=== PATIENT | female | born 1995 | race Caucasian/White ===

== ENCOUNTER 2018-03-17 18:21 | Outpatient (CLI) | payer OTHER ==
[2018-03-17 21:07] LABS: ADD UMIC YES; UR ASCORBIC ACID NEGATIVE (NEGATIVE); UR BACTERIA MODERATE /HPF (NONE SEEN); UR BILIRUBIN (Dip) NEGATIVE (NEGATIVE); UR BLOOD (Dip) 1+ mg/dL (NEGATIVE); UR CLARITY SLIGHTLY CLOUDY (CLEAR); UR COLOR YELLOW (YELLOW); UR GLUCOSE (Dip) NEGATIVE (NEGATIVE); UR KETONES (Dip) NEGATIVE (NEGATIVE); UR LEUKOCYTE ESTERASE (Dip) 3+ Leu/ul (NEGATIVE); UR MUCUS MODERATE /HPF (NONE SEEN); UR NITRITE (Dip) POSITIVE (NEGATIVE); UR RBC 4 /HPF (0-5); UR SPECIFIC GRAVITY (Dip) 1.009 (1.003-1.030); UR SQUAMOUS EPITHELIAL CELL FEW /HPF (FEW); UR TOTAL PROTEIN (Dip) NEGATIVE (NEGATIVE); UR UROBILINOGEN (Dip) NEGATIVE (NEGATIVE); UR WBC 20 /HPF (0-5)
== END 2018-03-17 21:10 | disposition home or self-care (01) ==
LOC: OBT 18:21 → L-D 18:22 → OBT 21:10
DX: O62.9 Abnormality of forces of labor, unspecified (principal); Z3A.37 37 weeks gestation of pregnancy
CPT/HCPCS: 81001

== ENCOUNTER 2018-03-31 10:00 | Inpatient (IN) | payer OTHER ==
[2018-03-31] MEDS ORDERED: MISOPROSTOL 200 MCG TAB PR ×2 (11:00→17:00)
[2018-03-31] MEDS ORDERED: OXYTOCIN 30 UNITS/LR 500 ML IV ×2 (11:00→17:00)
[2018-03-31] MEDS ORDERED: METHYLERGONOVINE 0.2 MG INJ IM ×2 (11:00→17:00)
[2018-03-31] MEDS ORDERED: CARBOPROST 250 MCG INJ IM ×2 (11:00→17:00)
[2018-03-31] MEDS: CEFAZOLIN 2 GM/50 ML (PMX) 50 ML IVPB (11:00)
[2018-03-31] MEDS: LACTATED RINGER'S 1,000 ML IV* ×2 (11:05→20:50)
[2018-03-31] MEDS ORDERED: NALOXONE (0.4 MG/ML) INJ IV (11:30)
[2018-03-31] MEDS ORDERED: HYDROmorphONE 0.5 MG/0.5 ML SYG IV ×2 (11:30)
[2018-03-31] MEDS ORDERED: MIDAZOLAM 1 MG/ML 2 ML INJ IV (11:30)
[2018-03-31] MEDS ORDERED: EPHEDrine SULFATE 50 MG/5 ML SYG IV (11:30)
[2018-03-31] MEDS ORDERED: DIPHENHYDRAMINE 50 MG INJ IV (11:30)
[2018-03-31] MEDS: ONDANSETRON 4 MG INJ IV ×3 (11:30→21:56)
[2018-03-31] MEDS ORDERED: NALBUPHINE HCL (10 MG/1 ML) INJ IV (11:30)
[2018-03-31] MEDS ORDERED: ZOLPIDEM 5 MG TAB PO (11:30)
[2018-03-31] MEDS ORDERED: MEPERIDINE 25 MG INJ IV (11:30)
[2018-03-31 11:33] LABS: ADD MAN DIFF? NO
[2018-03-31 11:41] LABS: BASOPHILS % 0.3 % (0.0-2.0); EOSINOPHILS # 0.1 10^3/ul (0.0-0.5); EOSINOPHILS % 0.5 % (0.0-7.0); HEMATOCRIT 33.9 % (37.0-47.0); HEMOGLOBIN 11.2 g/dl (12.0-16.0); LYMPHOCYTES # 2.8 10^3/ul (0.8-2.9); LYMPHOCYTES % 26.5 % (15.0-51.0); MEAN CORPUSCULAR HEMOGLOBIN 29.7 pg (29.0-33.0); MEAN CORPUSCULAR VOLUME 89.9 fl (82.0-101.0); MEAN PLATELET VOLUME 12.5 fl (7.4-10.4); MONOCYTE # 0.5 10^3/ul (0.3-0.9); MONOCYTES % 5.2 % (0.0-11.0); NEUTROPHILS % 66.8 % (39.0-77.0); PLATELET COUNT 143 10^3/UL (140-415); RED BLOOD COUNT 3.77 10^6/ul (4.20-5.40); RED CELL DISTRIBUTION WIDTH 14.1 % (11.5-14.5)
[2018-03-31 11:41] LABS: WHITE BLOOD COUNT 10.5 10^3/ul (4.8-10.8)
[2018-03-31 11:55] LABS: INR 0.89; PROTIME 12.1 Sec (11.9-14.9); PT RATIO 0.9
[2018-03-31] MEDS: LACTATED RINGER'S 1,000 ML IV ×2 (11:55→16:52)
[2018-03-31 11:56] LABS: PARTIAL THROMBOPLASTIN TIME 28.1 Sec (25.0-35.0)
[2018-03-31] MEDS: OXYTOCIN 30 UNITS/LR 500 ML IV ×3 (14:35→20:49)
[2018-03-31 15:50] LABS: RAPID PLASMA REAGIN NONREACTIVE (NR)
[2018-03-31 16:23] LABS: HEPATITIS B SURFACE ANTIGEN NEGATIVE (NEGATIVE)
[2018-03-31] MEDS ORDERED: OXYCODONE/ACETAMINOPHEN (5/325) TAB PO ×2 (17:00)
[2018-03-31] MEDS: LANOLIN 7 GM TUBE TOP (18:16)
[2018-03-31] MEDS ORDERED: DEXAMETHASONE 4 MG/ML 1 ML INJ (20:10)
[2018-03-31] MEDS ORDERED: OXYTOCIN 10 UNIT INJ (20:10)
[2018-03-31] MEDS ORDERED: DIPHENHYDRAMINE 50 MG INJ (20:10)
[2018-03-31] MEDS ORDERED: morphine SULFATE/PF (10 MG/10 ML) INJ (20:10)
[2018-03-31] MEDS ORDERED: BUPIVACAINE 0.75%/DEXT (SPINAL) 2 ML INJ (20:10)
[2018-03-31] MEDS: SENNA/DOCUSATE NA (8.6MG/50MG) TAB PO (21:00)
[2018-03-31] MEDS: IBUPROFEN 800 MG TAB PO (22:00)
[2018-03-31] MEDS: DIPHENHYDRAMINE 50 MG INJ IV (23:57)
[2018-04-01] MEDS: LACTATED RINGER'S 1,000 ML IV ×2 (00:52→08:34)
[2018-04-01] MEDS: LACTATED RINGER'S 1,000 ML IV* (03:00)
[2018-04-01] MEDS: IBUPROFEN 800 MG TAB PO ×3 (06:00→21:27)
[2018-04-01 06:54] LABS: ADD MAN DIFF? NO
[2018-04-01 07:09] LABS: BASOPHILS % 0.2 % (0.0-2.0); EOSINOPHILS % 0.1 % (0.0-7.0); HEMATOCRIT 29.5 % (37.0-47.0); HEMOGLOBIN 9.8 g/dl (12.0-16.0); LYMPHOCYTES # 2.7 10^3/ul (0.8-2.9); MEAN CORPUSCULAR HEMOGLOBIN 29.9 pg (29.0-33.0); MEAN CORPUSCULAR HGB CONC 33.2 g/dl (32.0-37.0); MEAN CORPUSCULAR VOLUME 89.9 fl (82.0-101.0); MEAN PLATELET VOLUME 12.6 fl (7.4-10.4); MONOCYTE # 0.8 10^3/ul (0.3-0.9); MONOCYTES % 5.8 % (0.0-11.0); NEUTROPHIL # 10.7 10^3/ul (1.6-7.5); NEUTROPHILS % 74.3 % (39.0-77.0); PLATELET COUNT 130 10^3/UL (140-415); RED BLOOD COUNT 3.28 10^6/ul (4.20-5.40); RED CELL DISTRIBUTION WIDTH 13.9 % (11.5-14.5)
[2018-04-01 07:09] LABS: WHITE BLOOD COUNT 14.4 10^3/ul (4.8-10.8)
[2018-04-01] MEDS: DIPHENHYDRAMINE 50 MG INJ IV (08:29)
[2018-04-01] MEDS: SENNA/DOCUSATE NA (8.6MG/50MG) TAB PO ×2 (08:29→21:27)
[2018-04-01] MEDS ORDERED: MIDAZOLAM 1 MG/ML 2 ML INJ (20:10)
[2018-04-01] MEDS: FERROUS SULFATE (EC) 325 MG TAB PO (21:27)
[2018-04-02] MEDS: IBUPROFEN 800 MG TAB PO ×3 (06:14→21:40)
[2018-04-02] MEDS: SENNA/DOCUSATE NA (8.6MG/50MG) TAB PO ×2 (09:32→21:40)
[2018-04-02] MEDS: FERROUS SULFATE (EC) 325 MG TAB PO ×3 (09:32→21:40)
[2018-04-02] MEDS: LANOLIN 7 GM TUBE TOP (11:11)
[2018-04-02] MEDS: MAGNESIUM HYDROXIDE 30ML CUP PO (13:23)
[2018-04-03] MEDS: IBUPROFEN 800 MG TAB PO (05:49)
[2018-04-03] MEDS: DIPHTH/TET/ACEL PERTUSS (ADULT) 0.5 ML VIAL IM* (09:00)
[2018-04-03] MEDS: FERROUS SULFATE (EC) 325 MG TAB PO (10:06)
[2018-04-03] MEDS: SENNA/DOCUSATE NA (8.6MG/50MG) TAB PO (10:06)
== END 2018-04-03 14:07 | disposition home or self-care (01) | DRG 766 ==
LOC: L-D 10:00 → PP1 16:45
PROVIDERS: Obstetrics & Gynecology
PROC: 10D00Z1 Extraction of Products of Conception, Low, Open Approach (ICD-10-PCS; principal; 2018-03-31 12:30)
PROC: 3E033VJ Introduction of Other Hormone into Peripheral Vein, Percutaneous Approach (ICD-10-PCS; 2018-03-31 12:30)
DX: O34.211 Maternal care for low transverse scar from previous cesarean delivery (principal); Z3A.39 39 weeks gestation of pregnancy; Z37.0 Single live birth
CPT/HCPCS: 85025; 85610; 85730; 86592; 86850; 86870; 86900; 86901; 87340